=== PATIENT | male | born 1990 | race Caucasian/White ===

== ENCOUNTER 2019-06-30 19:10 | Emergency (ER) | payer MEDICAID ==
[~2019-06-30] VITALS: Ht 180.3 cm; Wt 102.3 kg
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
--- NOTE | 2019-06-30 19:27 | NUR ---
CHARGE NURSE LUCIANO INFORMED OF PT STATUS. PT PLACED IN BED 17.
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
[2019-06-30 20:23] LABS: BASOPHILS # (AUTO) 0.1 X10'3 (0-0.2); BASOPHILS % (AUTO) 0.7 % (0-1); EOSINOPHILS # (AUTO) 0.5 X10'3 (0-0.9); EOSINOPHILS % (AUTO) 4.8 % (0-6); HEMATOCRIT 42.5 % (42.0-52.0); HEMOGLOBIN 14.3 g/dl (14.0-17.9); LYMPHOCYTES # (AUTO) 2.8 X10'3 (1.1-4.8); LYMPHOCYTES % (AUTO) 24.7 % (21-51); MEAN CORPUSCULAR HEMOGLOBIN 26.7 PG (27.0-31.0); MEAN CORPUSCULAR HGB CONC 33.8 g/dL (33.0-36.5); MEAN PLATELET VOLUME 9.1 FL (7.4-10.4); MONOCYTES % (AUTO) 8.8 % (2-12); NEUTROPHILS # (AUTO) 6.9 X10'3 (1.8-7.7); PLATELET COUNT 281 X10'3 (140-440); RED BLOOD COUNT 5.38 X10'6 (4.70-6.10); RED CELL DISTRIBUTION WIDTH 15.1 % (11.5-14.5); WHITE BLOOD COUNT 11.3 X10'3 (4.5-11.0)
[2019-06-30 20:35] LABS: ALANINE AMINOTRANSFERASE 50 U/L (12-78); ALBUMIN 4.3 G/DL (3.4-5.0); ALBUMIN/GLOBULIN RATIO 1.3 (1.1-1.5); ALKALINE PHOSPHATASE 104 IU/L (46-116); ANION GAP 10 (8-16); ASPARTATE AMINO TRANSFERASE 21 U/L (10-37); BILIRUBIN,TOTAL 0.3 MG/DL (0.1-1.0); BLOOD UREA NITROGEN 12 MG/DL (7-18); CALCIUM 9.5 MG/DL (8.5-10.1); CHLORIDE 107 MMOL/L (99-107); GLUCOSE 98 MG/DL (70-104); POTASSIUM 3.3 MMOL/L (3.5-5.1); SODIUM 144 MMOL/L (135-145); TOTAL CARBON DIOXIDE 27.2 MMOL/L (24-32); TOTAL PROTEIN 7.7 G/DL (6.4-8.2); eGFR 72 ML/MIN
[2019-06-30 20:45] LABS: ETHANOL < 0.010 GM/DL (0.0-0.010)
[2019-06-30 21:03] LABS: ACETAMINOPHEN < 2.0 UG/ML (10-30)
[2019-06-30] MEDS ORDERED: potassium Cl 20 mEq SR tablet PO STA (21:15)
--- NOTE | 2019-07-01 | NUR ---
Pt resting comfortably, respirations normal, no s/s of distress.
--- NOTE | 2019-07-01 01:00 | NUR ---
Pt's belongings brought to ER locker per data collection technician.
--- NOTE | 2019-07-01 02:00 | NUR ---
Pt resting comfortably, respirations normal, no s/s of distress.
--- NOTE | 2019-07-01 03:00 | NUR ---
Pt resting comfortably, respirations normal, no s/s of distress.
--- NOTE | 2019-07-01 04:03 | NUR ---
Pt brought over to er overflow
--- NOTE | 2019-07-01 05:37 | NUR ---
Pt resting comfortably, respirations normal, no s/s of distress.
--- NOTE | 2019-07-01 06:30 | NUR ---
PACKET HAS BEEN FAXED TO [facility]
--- NOTE | 2019-07-01 06:33 | NUR ---
pt resting quietly in bed.
--- NOTE | 2019-07-01 08:13 | NUR ---
resting quietly in bed.
--- NOTE | 2019-07-01 09:21 | NUR ---
appears to be sleeping in bed, resting quietly. rr even and unlabored.
--- NOTE | 2019-07-01 09:56 | NUR ---
Pt affirms latent SI, saying "I think about hurting myself. It's in the back of my mind." Plan is to hang self. He denies any previous hanging attempts saying, "I've been thinking about it since I was a kid." Pt reports he is not on any antidepressants, or psychotropics and would be open to starting. He engaged with this RN appropriately, maintaining good eye contact. He volunteered a verbal contract of safety saying, "I'm not going to do anything here."
[2019-07-01] MEDS ORDERED: NICOTINE POLACRILEX 4 MG LOZENGE BC PRN (10:15)
[2019-07-01] MEDS ORDERED: LORazepam 1 MG tablet PO ONE (10:15)
--- NOTE | 2019-07-01 10:31 | NUR ---
pt awake stating some anxiety at this time, has been sleeping most of the morning. pt apologized for sleeping late but stated he needed the sleep, he hasn't been sleeping well. current everyday smoker but denies withdrawls at this time. PO Ativan ordered and given, pt states he's never taken any medication for anxiety or anything but willing to try. Nicotine lozenges ordered, pt laughed when RN told him he has lozenges available. Pt states patches, lozenges, gum doesn't work for him "i've tried it all, but if you want to give it to me you can". Will continue to monitor pt and administer Lozenge at pt request PRN. Addendum: 07/01/19 at 1048 by SUSAN pt states being outside and observing nature helps with his smoking cravings since other nicotine alternatives do not work for him. pt aware he cannot do that here in the hospital. pt is ammenable to taking PRN med to help with any anxiety or nicotine withdrawl.
[2019-07-01 10:34] LABS: CLARITY,URINE CLEAR (Clear); COLOR,URINE YELLOW (Yellow); GLUCOSE, URINE NEGATIVE (Neg); KETONES,URINE NEGATIVE (Neg); LEUKOCYTE ESTERASE ,URINE NEGATIVE (Neg); NITRITES, URINE NEGATIVE (Neg); OCCULT BLOOD,URINE NEGATIVE (Neg); PROTEIN,URINE NEGATIVE (Neg)
[2019-07-01 10:38] LABS: UA COLLECTION TYPE CLN CATCH MIDSTREAM
[2019-07-01 10:39] LABS: URINE AMPHETAMINE SCREEN NEGATIVE (Neg); URINE BARBITUATE SCREEN NEGATIVE (Neg); URINE BENZODIAZEPINES SCREEN NEGATIVE (Neg); URINE CANNABINOID SCREEN NEGATIVE (Neg); URINE COCAINE SCREEN NEGATIVE (Neg); URINE METHADONE SCREEN NEGATIVE (Neg); URINE OPIATE SCREEN NEGATIVE (Neg); URINE PHENCYCLIDINE SCREEN NEGATIVE (Neg)
--- NOTE | 2019-07-01 11:28 | NUR ---
sitting up on side of bed talking to pt beside him. calm and speaking appropriatly.
--- NOTE | 2019-07-01 13:47 | NUR ---
pt calm and resting in bed talking with another pt.
--- NOTE | 2019-07-01 16:31 | NUR ---
sitting on side of bed talking to pt in next bed over. calm and cooperative.
[2019-07-01 17:35] VITALS: BP 106/74
--- NOTE | 2019-07-01 18:43 | NUR ---
Received report and assumed pt care.
--- NOTE | 2019-07-01 19:46 | NUR ---
Pt resting comfortably, no s/s of distress. No si or hi statements at this time.
--- NOTE | 2019-07-01 21:00 | NUR ---
Pt resting quietly, respirations normal, no s/s of distress.
--- NOTE | 2019-07-01 22:11 | NUR ---
Pt resting quietly, respirations normal, no s/s of distress.
== END 2019-07-01 22:43 ==
LOC: ER 19:11
DX: R45.851 Suicidal ideations (principal); R79.89 Other specified abnormal findings of blood chemistry; F17.200 Nicotine dependence, unspecified, uncomplicated; R94.6 Abnormal results of thyroid function studies
CPT/HCPCS: 36415; 80053; 80305; 80320; 80329; 81003; 84443; 85025; 99285